=== PATIENT | female | born 1960 | race Two or more races ===

== ENCOUNTER 2018-02-27 02:05 | Inpatient (IN) | payer OTHER ==
[2018-02-27] VITALS (15 sets, daily range): BP systolic 96–148; BP diastolic 40–80
[~2018-02-27] VITALS: Ht 160 cm; Wt 105.7 kg
[~2018-02-27 02:05] MED LIST: BENADRYL25 MG ORAL; IBUPROFEN600 MG ORAL; ONDANSETRON ODT4 MG ORAL; PREDNISONE20 MG ORAL; PROMETHAZINE-C118 M1 ORAL; RANITIDINE HCL150 MG ORAL; TAMIFLU75 MG ORAL; VALIUM10 MG ORAL; VENLAFAXINE H37.5 MG ORAL; XANAX2 MG ORAL
[2018-02-27] MEDS ORDERED: Sodium Chloride 500ML 500 ML IV ONE (02:37)
--- NOTE | 2018-02-27 02:39 | Emergency Room Report ---
History of Present Illness General Chief Complaint: Abdominal Pain Source: Patient Present Illness HPI Patient presents with complaints of diffuse abdominal pain Pain started approximately 6 PM Denies any vomiting or diarrhea Pain however is 8 out of 10 diffuse Denies any chest pain or shortness of breath denies any dysuria frequency patient has not had any previous abdominal surgeries denies any flank pain denies any dysuria or trauma Allergies: Coded Allergies: No Known Allergies (Unverified , 09/04/13) Patient History Past Medical History: see triage record Pertinent Family History: none Last Menstrual Period: none Now: No Reviewed Nursing Documentation: PMH: Agreed; PSxH: Agreed Nursing Documentation-PMH Past Medical History: No Stated History Review of Systems All Other Systems: negative except mentioned in HPI Physical Exam Vital Signs Date Time Temp Pulse Resp B/P (MAP) Pulse Ox O2 Delivery O2 Flow Rate FiO2 02/27/18 02:09 100.7 99 15 157/89 93 Room Air 100.8 Sp02 EP Interpretation: reviewed, normal General Appearance: mild distress - Uncomfortable Head: normocephalic, atraumatic Eyes: bilateral eye PERRL, bilateral eye EOMI ENT: hearing grossly normal, normal pharynx, TMs + canals normal, uvula midline Neck: full range of motion, supple, no meningismus, no bony tend Respiratory: lungs clear, normal breath sounds, no rhonchi, no respiratory distress, no retraction, no accessory muscle use Cardiovascular #1: normal peripheral pulses, regular rate, rhythm, no edema, no gallop, no JVD, no murmur Gastrointestinal: normal bowel sounds, soft, no mass, no organomegaly, non- distended, no guarding, no hernia, no pulsatile mass, no rebound, tenderness - Diffusely Genitourinary: no CVA tenderness Musculoskeletal: normal inspection Neurologic: oriented x3, responsive, counseling center manager III-XII nml as tested, motor strength/ tone normal, sensory intact Psychiatric: mood/affect normal Skin: normal color, no rash, warm/dry, palpation normal Lymphatic: normal inspection, no adenopathy Procedures Critical Care Time Critical Care Time 40 minutes for multiple re-evaluations, diagnoses and findings with let threatening pathology not including any procedural time Medical Decision Making Diagnostic Impression: Primary Impression: Acute appendicitis ER Course With the history exam and presentation, multiple differentials considered, including but not limited to appendicitis, gastritis, cholecystitis, diverticulitis Patient blood work shows mildly elevated CBC CAT scan however does reveal evidence of acute appendicitis Patient provided further medications hydration and antibiotics And requires inpatient care and surgical intervention Labs Test 02/27/18 03:30 02/27/18 04:04 White Blood Count 13.2 K/UL (4.8-10.8) Red Blood Count 4.35 M/UL (4.20-5.40) Hemoglobin 14.0 G/DL (12.0-16.0) Hematocrit 41.2 % (37.0-47.0) Mean Corpuscular Volume 95 FL (80-99) Mean Corpuscular Hemoglobin 32.1 PG (27.0-31.0) Mean Corpuscular Hemoglobin Concent 33.9 G/DL (32.0-36.0) Red Cell Distribution Width 12.2 % (11.6-14.8) Platelet Count 137 K/UL (150-450) Mean Platelet Volume 9.7 FL (6.5-10.1) Neutrophils (%) (Auto) 80.0 % (45.0-75.0) Lymphocytes (%) (Auto) 12.6 % (20.0-45.0) Monocytes (%) (Auto) 6.8 % (1.0-10.0) Eosinophils (%) (Auto) 0.3 % (0.0-3.0) Basophils (%) (Auto) 0.5 % (0.0-2.0) Sodium Level 139 MMOL/L (136-145) Potassium Level 3.8 MMOL/L (3.5-5.1) Chloride Level 104 MMOL/L (98-107) Carbon Dioxide Level 28 MMOL/L (21-32) Anion Gap 8 mmol/L (5-15) Blood Urea Nitrogen 13 mg/dL (7-18) Creatinine 0.8 MG/DL (0.55-1.30) Estimat Glomerular Filtration Rate > 60 mL/min (>60) Glucose Level 131 MG/DL (74-106) Calcium Level 8.5 MG/DL (8.5-10.1) Total Bilirubin 0.5 MG/DL (0.2-1.0) Aspartate Amino Transf (AST/SGOT) 23 U/L (15-37) Alanine Aminotransferase (ALT/SGPT) 36 U/L (12-78) Alkaline Phosphatase 68 U/L (46-116) Total Protein 6.8 G/DL (6.4-8.2) Albumin 3.3 G/DL (3.4-5.0) Globulin 3.5 g/dL Albumin/Globulin Ratio 0.9 (1.0-2.7) Lipase 137 U/L (73-393) Urine Color Pale yellow Urine Appearance Clear Urine pH 7 (4.5-8.0) Urine Specific [place] 1.010 (1.005-1.035) Urine Protein Negative (NEGATIVE) Urine Glucose (UA) Negative (NEGATIVE) Urine Ketones Negative (NEGATIVE) Urine Occult Blood 2+ (NEGATIVE) Urine Nitrite Negative (NEGATIVE) Urine Bilirubin Negative (NEGATIVE) Urine Urobilinogen Normal MG/DL (0.0-1.0) Urine Leukocyte Esterase 3+ (NEGATIVE) Urine RBC 0-2 /HPF (0 - 2) Urine WBC 2-4 /HPF (0 - 2) Urine Squamous Epithelial Cells Occasional /LPF Urine Bacteria Occasional /HPF (NONE) CT/MRI/US Diagnostic Results CT/MRI/US Diagnostic Results : Impression CT abdomen pelvis: acute appendicitis Last Vital Signs Date Time Temp Pulse Resp B/P (MAP) Pulse Ox O2 Delivery O2 Flow Rate FiO2 02/27/18 02:09 100.7 99 15 157/89 93 Room Air 100.8 Status: improved Disposition: ADMITTED INPATIENT Condition: Serious JayceemarcyLorrie DO Feb 27, 2018 02:39
[2018-02-27] MEDS ORDERED: Morphine Sulfate 4mg/ml Inj IVP ONE (02:45)
[2018-02-27 03:57] LABS: BASOPHILS % (AUTO) 0.5 % (0.0-2.0); EOSINOPHILS % (AUTO) 0.3 % (0.0-3.0); HEMATOCRIT 41.2 % (37.0-47.0); LYMPHOCYTES % (AUTO) 12.6 % (20.0-45.0); MEAN CORPUSCULAR VOLUME 95 FL (80-99); MONOCYTES % (AUTO) 6.8 % (1.0-10.0); PLATELET COUNT 137 K/UL (150-450); RED BLOOD COUNT 4.35 M/UL (4.20-5.40); RED CELL DISTRIBUTION WIDTH 12.2 % (11.6-14.8); WHITE BLOOD COUNT 13.2 K/UL (4.8-10.8)
[2018-02-27 04:06] LABS: ANION GAP 8 mmol/L (5-15); BLOOD UREA NITROGEN 13 mg/dL (7-18); CALCIUM 8.5 MG/DL (8.5-10.1); CARBON DIOXIDE 28 MMOL/L (21-32); CHLORIDE 104 MMOL/L (98-107); CREATININE 0.8 MG/DL (0.55-1.30); POTASSIUM 3.8 MMOL/L (3.5-5.1); SODIUM 139 MMOL/L (136-145)
[2018-02-27 04:11] LABS: ALANINE AMINOTRANSFERASE 36 U/L (12-78); ALBUMIN 3.3 G/DL (3.4-5.0); ALBUMIN/GLOBULIN RATIO 0.9 (1.0-2.7); ALKALINE PHOSPHATASE 68 U/L (46-116); ASPARTATE AMINO TRANSFERASE 23 U/L (15-37); BILIRUBIN,TOTAL 0.5 MG/DL (0.2-1.0)
[2018-02-27 04:15] LABS: APPEARANCE,URINE CLEAR; BILIRUBIN, URINE NEGATIVE (NEGATIVE); COLOR,URINE PALE YELLOW; GLUCOSE, URINE (UA) NEGATIVE (NEGATIVE); KETONES,URINE NEGATIVE (NEGATIVE); LEUKOCYTE ESTERASE ,URINE 3+ (NEGATIVE); NITRITE,URINE NEGATIVE (NEGATIVE); PH,URINE 7 (4.5-8.0); PROTEIN,URINE NEGATIVE (NEGATIVE); UROBILINOGEN,URINE NORMAL MG/DL (0.0-1.0)
[2018-02-27] MEDS ORDERED: Piperacillin/Tazobactam 3.375 GM in NS 110 ML IVPB ONE (05:15)
[2018-02-27] MEDS ORDERED: VITAMIN E400 UNI6 PO (07:50)
[2018-02-27] MEDS ORDERED: MULTIVITAMINS1 EAC2 ORAL (07:50)
[2018-02-27] MEDS ORDERED: VITAMIN B122500 MCG PO (07:50)
[2018-02-27] MEDS ORDERED: VENLAFAXINE H37.5 MG ORAL (07:50)
[2018-02-27] MEDS ORDERED: XANAX0.25 MG ORAL (07:50)
[2018-02-27] MEDS ORDERED: Glycopyrrolate 0.2mg/ml 1ml Vial ONE (08:00)
[2018-02-27] MEDS ORDERED: NS Irrig 1000ml ONE (08:00)
[2018-02-27] MEDS ORDERED: LR 1000ml ONE (08:00)
[2018-02-27] MEDS ORDERED: Neostigmine 1mg/ml 10ml Inj ONE (08:00)
[2018-02-27] MEDS ORDERED: Sterile Water Irrig 1000ml IRRIG ONE (08:00)
[2018-02-27] MEDS ORDERED: Midazolam 2mg/2ml Inj ONE (08:00)
[2018-02-27] MEDS ORDERED: Succinylcholine 20mg/ml 10ml vial ONE (08:00)
[2018-02-27] MEDS ORDERED: Zemuron 50mg/5ml Inj IV ONE (08:00)
[2018-02-27] MEDS ORDERED: Propofol 200mg/20ml IV ONE (08:00)
[2018-02-27] MEDS ORDERED: Ketorolac 30mg Inj ONE (08:00)
[2018-02-27] MEDS ORDERED: fentaNYL 100 mcg/2 mL IV ONE (08:00)
--- NOTE | 2018-02-27 09:01 | Consultation ---
History of Present Illness General Date patient seen: Feb 27, 2018 Chief Complaint: Abdominal Pain Reason for Consultation: acute appendicitis Present Illness HPI 57 year old female presented to ED with complaints of acute onset abdominal pain. As per patient and family she was in her normal state of health until 6 pm last night when she began to experience acute lower/RLQ abdominal pain. Pain described as cramping pain which is 7/10 without radiation. nausea, no emesis, +flatus, no diarrhea. in ED had CT scan which demonstrated acute appendicitis. surgery called to evaluate. Allergies: Coded Allergies: No Known Allergies (Unverified , 09/04/13) Medication History Scheduled Cyanocobalamin (Vitamin B-12) (Vitamin B12), 2,500 MCG PO DAILY, (Reported) Multivitamins* (Multivitamins*), 1 TAB ORAL DAILY, (Reported) Prednisone* (Prednisone*), 20 MG ORAL BID Ranitidine Hcl* (Zantac*), 150 MG ORAL TWICE A DAY Venlafaxine Hcl* (Effexor*), 75 MG ORAL DAILY, (Reported) Vitamin E (Vitamin E), 800 UNIT PO DAILY, (Reported) Scheduled PRN Alprazolam* (Xanax*), 0.25 MG ORAL QHS PRN for insomnia, (Reported) Diphenhydramine Hcl* (Benadryl*), 25 MG ORAL Q6H PRN for Itching Ibuprofen* (Motrin*), 600 MG ORAL Q8H PRN for For Pain Patient History History Provided By: Patient, Medical Record, PMD Healthcare decision maker Resuscitation status Full Code Advanced Directive on File Past Medical/Surgical History Past Medical/Surgical History: (1) Vertigo (2) Anxiety (3) Influenza (4) Influenza (5) Allergic reaction (6) Toe sprain (7) Acute appendicitis Review of Systems All Other Systems: negative except mentioned in HPI Physical Exam General Appearance: no apparent distress, alert Lines, tubes and drains: peripheral HEENT: normocephalic, anicteric, mucous membranes moist, PERRL Neck: normal alignment Respiratory/Chest: chest wall non-tender, lungs clear, normal breath sounds, no respiratory distress Cardiovascular/Chest: normal peripheral pulses, normal rate Abdomen: normal bowel sounds, soft, no organomegaly, no mass, guarding, rebound , tender, other - soft, tender in RLQ with rebound and guarding, obese Extremities: normal range of motion, non-tender, normal inspection Skin Exam: normal pigmentation Neurologic: alert, oriented x 3 Last 24 Hour Vital Signs Date Time Temp Pulse Resp B/P (MAP) Pulse Ox O2 Delivery O2 Flow Rate FiO2 02/27/18 06:45 99.4 74 20 130/78 93 99.4 02/27/18 06:40 98.2 77 15 121/64 99 Room Air 98.2 02/27/18 05:54 98.2 77 15 121/64 99 Room Air 98.2 02/27/18 04:50 100.0 02/27/18 04:30 87 16 118/66 100 Room Air 02/27/18 04:12 100.5 02/27/18 02:30 100.5 88 16 148/79 100.5 02/27/18 02:09 100.7 99 15 157/89 93 Room Air 100.8 Laboratory Tests Test 02/27/18 03:30 02/27/18 04:04 White Blood Count 13.2 K/UL (4.8-10.8) H Red Blood Count 4.35 M/UL (4.20-5.40) Hemoglobin 14.0 G/DL (12.0-16.0) Hematocrit 41.2 % (37.0-47.0) Mean Corpuscular Volume 95 FL (80-99) Mean Corpuscular Hemoglobin 32.1 PG (27.0-31.0) H Mean Corpuscular Hemoglobin Concent 33.9 G/DL (32.0-36.0) Red Cell Distribution Width 12.2 % (11.6-14.8) Platelet Count 137 K/UL (150-450) L Mean Platelet Volume 9.7 FL (6.5-10.1) Neutrophils (%) (Auto) 80.0 % (45.0-75.0) H Lymphocytes (%) (Auto) 12.6 % (20.0-45.0) L Monocytes (%) (Auto) 6.8 % (1.0-10.0) Eosinophils (%) (Auto) 0.3 % (0.0-3.0) Basophils (%) (Auto) 0.5 % (0.0-2.0) Sodium Level 139 MMOL/L (136-145) Potassium Level 3.8 MMOL/L (3.5-5.1) Chloride Level 104 MMOL/L (98-107) Carbon Dioxide Level 28 MMOL/L (21-32) Anion Gap 8 mmol/L (5-15) Blood Urea Nitrogen 13 mg/dL (7-18) Creatinine 0.8 MG/DL (0.55-1.30) Estimat Glomerular Filtration Rate > 60 mL/min (>60) Glucose Level 131 MG/DL (74-106) H Calcium Level 8.5 MG/DL (8.5-10.1) Total Bilirubin 0.5 MG/DL (0.2-1.0) Aspartate Amino Transf (AST/SGOT) 23 U/L (15-37) Alanine Aminotransferase (ALT/SGPT) 36 U/L (12-78) Alkaline Phosphatase 68 U/L (46-116) Total Protein 6.8 G/DL (6.4-8.2) Albumin 3.3 G/DL (3.4-5.0) L Globulin 3.5 g/dL Albumin/Globulin Ratio 0.9 (1.0-2.7) L Lipase 137 U/L (73-393) Urine Color Pale yellow Urine Appearance Clear Urine pH 7 (4.5-8.0) Urine Specific [place] 1.010 (1.005-1.035) Urine Protein Negative (NEGATIVE) Urine Glucose (UA) Negative (NEGATIVE) Urine Ketones Negative (NEGATIVE) Urine Occult Blood 2+ (NEGATIVE) H Urine Nitrite Negative (NEGATIVE) Urine Bilirubin Negative (NEGATIVE) Urine Urobilinogen Normal MG/DL (0.0-1.0) Urine Leukocyte Esterase 3+ (NEGATIVE) H Urine RBC 0-2 /HPF (0 - 2) Urine WBC 2-4 /HPF (0 - 2) Urine Squamous Epithelial Cells Occasional /LPF Urine Bacteria Occasional /HPF (NONE) Height (Feet): 5 Height (Inches): 3.00 Weight (Pounds): 196 Assessment/Plan Problem List: (1) Acute appendicitis Assessment & Plan: 57F acute appy. Afebrile, HD stable, leukocytosis, exam with RLQ tenderness, CT as above. -OR for lap vs open appy -NPO -IV fluids -IV abx -consent ICD Codes: K35.80 - Unspecified acute appendicitis SNOMED: [id number] Qualifiers: Qualified Codes: K35.3 - Acute appendicitis with localized peritonitis Status: stable Lambert Duque Feb 27, 2018 09:01
--- NOTE | 2018-02-27 09:02 | Pre-Procedure Note/Attestation ---
Pre-Procedure Note/Attestation Complete Prior to Procedure Planned Procedure: not applicable Procedure Narrative: laparoscopic appendectomy; possible open Indications for Procedure Pre-Operative Diagnosis: acute appendicitis Attestation I attest that I discussed the nature of the procedure; its benefits; risks and complications; and alternatives (and the risks and benefits of such alternatives ), prior to the procedure, with the patient (or the patient's legal parts sales representative). I attest that, if there was a reasonable possibility of needing a blood transfusion, the patient (or the patient's legal parts sales representative) was given the [facility] standardized written summary, pursuant to the [place] Blood Safety Act ([place] Health and Safety Code # 1645, as amended). I attest that I re-evaluated the patient just prior to the surgery and that there has been no change in the patient's H&P, except as documented below: Lambert Duque Feb 27, 2018 09:02
[2018-02-27] MEDS ORDERED: Lidocaine 1% 10mg/ml/Epi 0.005mg/ml 30ml vial INJ ONE (09:36)
--- NOTE | 2018-02-27 09:48 | Diagnostic Imaging Report ---
Indication: Abdominal pain Technique: Continuous helical transaxial imaging of the abdomen and pelvis was obtained from the lung bases to the pubic symphysis. No intravenous contrast was administered. Coronal 2-D reformats were also obtained. Automatic Exposure Control was utilized. Total Dose length Product (DLP): 1784.[address] Dose Index Volume (CTDIvol): 32.87 mGy Comparison: none Findings: There is mild subsegmental posterior basal atelectasis. There is moderate low attenuation of the liver consistent with fatty infiltration. Gallbladder is unremarkable. Proceeding to the pelvis, the appendix is seen and appears somewhat prominent measuring between 8 to 9 mm in diameter. The wall of the appendix is ill-defined and there is a slight soft tissue attenuation noted surrounding the appendix. Findings concerning for early acute appendicitis. Please correlate clinically. No evidence of abscess or free fluid. Urinary bladder is unremarkable. There is no hydronephrosis. Uterus noted. Degenerative facet arthropathy noted in the lower lumbar spine characterized by sclerosis and hypertrophy. Mild arterial calcification noted. IMPRESSION: Acute appendicitis suspected. Fatty liver. Other incidental findings as above. [facility] has communicated the preliminary results to the Emergency Department. Their findings are largely concordant with this report. Critical value communication The CT scanner at [facility] is accredited by the [employer] and the scans are performed using dose optimization techniques as appropriate to a performed exam including Automatic Exposure control.
[2018-02-27] MEDS ORDERED: NS Irrig 1000ml IRRIG ONE (11:00)
[2018-02-27] MEDS: Piperacillin/Tazobactam 3.375 GM in D5W 110 ML IVPB SCH ×2 (11:00→19:03)
[2018-02-27] MEDS ORDERED: LR 1000ml 1,000 ML IVLG SCH (11:20)
--- NOTE | 2018-02-27 11:20 | Anethesia Preoperative Eval ---
Anesthesia Pre-op PMH/ROS General Date of Evaluation: Feb 27, 2018 Time of Evaluation: 10:28 Anesthesiologist: aMrion ASA Score: ASA 3 Mallampati Score Class I : Soft palate, uvula, fauces, pillars visible Class II: Soft palate, uvula, fauces visible Class III: Soft palate, base of uvula visible Class IV: Only hard plate visible Mallampati Classification: Class III Surgeon: Zee Diagnosis: Acute appedicitis Surgical Procedure: Laparoscopic appedectomy Anesthesia History: none Family History: no anesthesia problems Allergies: Coded Allergies: No Known Allergies (Unverified , 09/04/13) Medications: see eMAR Past Medical History Cardiovascular: Denies: HTN, CAD, ME, valve dz, arrhythmia, other Pulmonary: Reports: JUNE; Denies: asthma, COPD, other Gastrointestinal/Genitourinary: Reports: GERD; Denies: CRI, ESRD, other Neurologic/Psychiatric: Reports: depression/anxiety; Denies: dementia, CVA, TIA, other Endocrine: Reports: DM - borderline; Denies: hypothyroidism, steroids, other Hematology/Immune: Denies: anemia, DVT, bleeding disorder, other Musculoskeletal/Integumentary: Denies: OA, RA, DJD, DDD, edema, other Other: obesity - morbid obesity PMH Narrative: Acutely ill abdominal pain fewer PSxH Narrative: Hand tendon repair Anesthesia Pre-op Phys. Exam Physician Exam Last Vital Signs Date Time Temp Pulse Resp B/P (MAP) Pulse Ox O2 Delivery O2 Flow Rate FiO2 02/27/18 08:00 98.6 85 17 142/80 99 Room Air 98.6 Constitutional: NAD Neurologic: CN 2-12 intact Cardiovascular: RRR Respiratory: CTA Gastrointestinal: other - tender Airway Exam Mallampati Score: Class III MO: limited Neck: Short ROM: limited Teeth: missing Dentures: no upper, no lower Anesthesia Pre-op A/P Labs Hematology Test 02/27/18 03:30 White Blood Count 13.2 K/UL (4.8-10.8) H Red Blood Count 4.35 M/UL (4.20-5.40) Hemoglobin 14.0 G/DL (12.0-16.0) Hematocrit 41.2 % (37.0-47.0) Mean Corpuscular Volume 95 FL (80-99) Mean Corpuscular Hemoglobin 32.1 PG (27.0-31.0) H Mean Corpuscular Hemoglobin Concent 33.9 G/DL (32.0-36.0) Red Cell Distribution Width 12.2 % (11.6-14.8) Platelet Count 137 K/UL (150-450) L Mean Platelet Volume 9.7 FL (6.5-10.1) Neutrophils (%) (Auto) 80.0 % (45.0-75.0) H Lymphocytes (%) (Auto) 12.6 % (20.0-45.0) L Monocytes (%) (Auto) 6.8 % (1.0-10.0) Eosinophils (%) (Auto) 0.3 % (0.0-3.0) Basophils (%) (Auto) 0.5 % (0.0-2.0) Coagulation Test 02/27/18 09:20 Prothrombin Time 10.9 SEC (9.30-11.50) Prothromb Time International Ratio 1.0 (0.9-1.1) Activated Partial Thromboplast Time 28 SEC (23-33) Chemistry Test 02/27/18 03:30 Sodium Level 139 MMOL/L (136-145) Potassium Level 3.8 MMOL/L (3.5-5.1) Chloride Level 104 MMOL/L (98-107) Carbon Dioxide Level 28 MMOL/L (21-32) Anion Gap 8 mmol/L (5-15) Blood Urea Nitrogen 13 mg/dL (7-18) Creatinine 0.8 MG/DL (0.55-1.30) Estimat Glomerular Filtration Rate > 60 mL/min (>60) Glucose Level 131 MG/DL (74-106) H Calcium Level 8.5 MG/DL (8.5-10.1) Total Bilirubin 0.5 MG/DL (0.2-1.0) Aspartate Amino Transf (AST/SGOT) 23 U/L (15-37) Alanine Aminotransferase (ALT/SGPT) 36 U/L (12-78) Alkaline Phosphatase 68 U/L (46-116) Total Protein 6.8 G/DL (6.4-8.2) Albumin 3.3 G/DL (3.4-5.0) L Globulin 3.5 g/dL Albumin/Globulin Ratio 0.9 (1.0-2.7) L Lipase 137 U/L (73-393) Studies Pre-op Studies: EKG - NSR Risk Assessment & Plan Assessment: ASA 3 Plan: GA with ETT Status Change Before Surgery: No Pre-Antibiotics Drug: Zosin 3,375 Given Within 1 Hr of Incision: Yes Time Given: 11:20 REFUGIO TOMAS M.D. Feb 27, 2018 11:20
[2018-02-27] MEDS ORDERED: DiphenhydrAMINE 50mg/ml Inj IVP PRN (11:30)
[2018-02-27] MEDS ORDERED: Meperidine 50mg/ml Inj(FOR RIGORS ONLY) IV PRN (11:30)
[2018-02-27] MEDS ORDERED: Ketorolac 30mg Inj IV PRN (11:30)
[2018-02-27] MEDS ORDERED: Hydromorphone 0.5mg/0.5ml inj IVP PRN (11:30)
[2018-02-27] MEDS ORDERED: Midazolam 2mg/2ml Inj IVP PRN (11:30)
--- NOTE | 2018-02-27 12:07 | Brief Operative Note ---
Immediate Post Operative Note Operative Note Pre-op Diagnosis: acute appendicitis Procedure: laparoscopic appendectomy Post-op Diagnosis: same as pre-op Surgeon: kwame Anesthesiologist: celia Anesthesia: general, local Specimen: yes - appendix Complications: none Condition: stable Fluids: see records Estimated Blood Loss: minimal Drains: none Implant(s) used?: No Lambert Duque Feb 27, 2018 12:07
--- NOTE | 2018-02-27 12:08 | Immediate Post-Op Evaluation ---
Immediate Post-Op Evalulation Immediate Post-Op Evalulation Procedure: Laparoscopic appendectomy Date of Evaluation: Feb 27, 2018 Time of Evaluation: 12:07 IV Fluids: 800 Blood Products: none Estimated Blood Loss: 50 Urinary Output: none Blood Pressure Systolic: 112 Blood Pressure Diastolic: 56 Pulse Rate: 86 Respiratory Rate: 22 O2 Sat by Pulse Oximetry: 97 Temperature (Fahrenheit): 97.8 Pain Score (1-10): 2 Nausea: No Vomiting: No Complications none Patient Status: awake, patent, extubated Hydration Status: adequate REFUGIO TOMAS M.D. Feb 27, 2018 12:08
[2018-02-27] MEDS ORDERED: Morphine Sulfate 4mg/ml Inj IVP PRN ×2 (12:15→14:00)
[2018-02-27] MEDS ORDERED: HYDROcodone/Acetamin 10/325 tab ORAL PRN (12:15)
[2018-02-27] MEDS ORDERED: Morphine Sulfate 2mg/ml Inj IVP PRN (12:15)
[2018-02-27] MEDS ORDERED: Norco 5mg/325mg tab ORAL PRN (12:15)
--- NOTE | 2018-02-27 13:30 | Operative Note - Dictated ---
DATE OF OPERATION: 02/27/2018 PREOPERATIVE DIAGNOSIS: Acute appendicitis. POSTOPERATIVE DIAGNOSIS: Acute appendicitis. OPERATION PERFORMED: Laparoscopic appendectomy. ATTENDING SURGEON: Lambert Duque M.D. HANDCREW FOREMAN: None. ANESTHESIOLOGIST: Drew Schultz M.D. 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 ESTIMATED BLOOD LOSS: Minimal. IV FLUIDS: Please see anesthesia records. COMPLICATIONS: None. SPECIMENS: Appendix sent to pathology for review. WOUND CLASSIFICATION: Class II. INTRAVENOUS ANTIBIOTICS: The patient was on scheduled Zosyn prior to entering the operating room. COUNTS: Sponge and needle count correct x2. DRAINS: None. INDICATIONS FOR PROCEDURE: This is a 57-year-old female who presented to the emergency department at [facility] complaining of worsening right lower quadrant abdominal pain for one day. In the emergency department, the patient was noted to have leukocytosis and CT scan consistent with acute uncomplicated appendicitis. Surgery was indicated and recommended. Risks, benefits, and alternatives were discussed with the patient and family in detail at bedside and consent was obtained. OPERATIVE NOTE: The patient was taken to the operating room and placed on the operating table in supine position with bilateral arms out. All bony prominences were well padded. No Heard catheter was inserted given the patient had voided prior to entering the operating room. The patient was on scheduled IV Zosyn prior to entering the operating room. Preoperative time-out was taken identifying the patient, procedure, operative staff, and surgical staff. General anesthesia was induced and the patient was intubated. The abdomen was prepped and draped in standard surgical fashion. We began by making an infraumbilical incision using a fresh #11 scalpel. Incision was carried down to the fascia, which was elevated and incised. Entry into the abdomen was obtained using the open Reji technique without complication. A 12 mm Reji trocar was inserted and abdomen insufflated to 12 to 15 mmHg. The patient tolerated the insufflation well. The laparoscope was then inserted and the abdomen inspected. No complications or abnormalities noted. Secondary trocars were placed in under direct visualization beginning with a 12 mm left lower quadrant port and a 5 mm suprapubic port. Following this, laparoscopic graspers were used to identify the taeniae down to the base of the cecum identifying the appendix. The appendix was identified and noted to be inflamed but without perforation. The appendix was grasped and retracted to identify the base of the appendix. A window was made at the base of the appendix using a laparoscopic Jolene. A laparoscopic linear stapler was then used to divide the base of the appendix without complication. The mesoappendix was then identified and divided in a similar fashion using a laparoscopic linear stapler. Following completion of this, there was some bleeding noted from the appendiceal artery through the mesoappendix staple line and this was controlled using laparoscopic clips. Once this was completed, hemostasis was noted. Both staple lines were identified and satisfactory. Minimal irrigation and suction in the right lower quadrant was performed. At this time, the appendix was placed in an endoscopic retrieval bag and removed from the abdomen using the umbilical port site. At this time, we began the conclusion of our procedure. The secondary trocars were removed under direct visualization. The umbilical trocar was then removed and the abdomen allowed to desufflate. The umbilical port site fascia was closed using a [id number] #0 Vicryl suture. The remaining skin incisions were closed using 4-0 Monocryl subcuticular sutures. Steri-Strips and dressings were applied. The patient tolerated the procedure well, was extubated, and taken to postanesthetic care unit in stable condition. Madai Garza JOB#: [id number] CC:
--- NOTE | 2018-02-27 14:15 | History and Physical ---
History of Present Illness General Date patient seen: Feb 27, 2018 Reason for Hospitalization: Abdominal Pain Present Illness HPI 57 year old female with PMHx of depression and kidney stones presented to ER with complaints of diffuse abdominal pain. Pt was diagnosed to have appendicitis, was seen by surgeon who performed the appendectomy already. Pt is admitted to [facility] floor for post-op care. / Allergies: Coded Allergies: No Known Allergies (Unverified , 09/04/13) Medication History Scheduled Cyanocobalamin (Vitamin B-12) (Vitamin B12), 2,500 MCG PO DAILY, (Reported) Multivitamins* (Multivitamins*), 1 TAB ORAL DAILY, (Reported) Prednisone* (Prednisone*), 20 MG ORAL BID Ranitidine Hcl* (Zantac*), 150 MG ORAL TWICE A DAY Venlafaxine Hcl* (Effexor*), 75 MG ORAL DAILY, (Reported) Vitamin E (Vitamin E), 800 UNIT PO DAILY, (Reported) Scheduled PRN Alprazolam* (Xanax*), 0.25 MG ORAL QHS PRN for insomnia, (Reported) Diphenhydramine Hcl* (Benadryl*), 25 MG ORAL Q6H PRN for Itching Ibuprofen* (Motrin*), 600 MG ORAL Q8H PRN for For Pain Patient History Healthcare decision maker Resuscitation status Full Code Advanced Directive on File Review of Systems All Other Systems: negative except mentioned in HPI Physical Exam General Appearance: WD/WN Lines, tubes and drains: peripheral, central line HEENT: atraumatic, anicteric Neck: non-tender, normal alignment, limited range of motion Respiratory/Chest: chest wall non-tender, no accessory muscle use Breasts: no masses Cardiovascular/Chest: normal rate Abdomen: normal bowel sounds, guarding Genitourinary/Rectal: normal genital exam, normal rectal exam, heme negative stool Last 24 Hour Vital Signs Date Time Temp Pulse Resp B/P (MAP) Pulse Ox O2 Delivery O2 Flow Rate FiO2 02/27/18 13:15 99.2 69 18 105/49 96 Nasal Cannula 3.0 99.2 02/27/18 13:00 71 17 96/42 96 Nasal Cannula 3.0 02/27/18 12:56 99.0 02/27/18 12:45 76 18 98/40 97 Nasal Cannula 3.0 02/27/18 12:30 70 18 98/40 95 Nasal Cannula 3.0 02/27/18 12:26 99.0 02/27/18 12:20 79 18 103/48 97 Nasal Cannula 3.0 02/27/18 12:10 76 20 112/51 96 Simple Mask 6.0 02/27/18 12:08 208.0 86 22 97 02/27/18 12:00 99.0 82 22 109/46 97 Simple Mask 6.0 99.0 02/27/18 11:56 99.0 82 22 109/46 97 Simple Mask 6.0 99.0 02/27/18 08:00 98.6 85 17 142/80 99 Room Air 98.6 02/27/18 06:45 99.4 74 20 130/78 93 99.4 02/27/18 06:40 98.2 77 15 121/64 99 Room Air 98.2 02/27/18 05:54 98.2 77 15 121/64 99 Room Air 98.2 02/27/18 04:50 100.0 02/27/18 04:30 87 16 118/66 100 Room Air 02/27/18 04:12 100.5 02/27/18 02:30 100.5 88 16 148/79 100.5 02/27/18 02:09 100.7 99 15 157/89 93 Room Air 100.8 Intake and Output 02/26/18 02/27/18 19:00 07:00 # Voids 2 Laboratory Tests Test 02/27/18 03:30 02/27/18 04:04 02/27/18 09:20 White Blood Count 13.2 K/UL (4.8-10.8) H Red Blood Count 4.35 M/UL (4.20-5.40) Hemoglobin 14.0 G/DL (12.0-16.0) Hematocrit 41.2 % (37.0-47.0) Mean Corpuscular Volume 95 FL (80-99) Mean Corpuscular Hemoglobin 32.1 PG (27.0-31.0) H Mean Corpuscular Hemoglobin Concent 33.9 G/DL (32.0-36.0) Red Cell Distribution Width 12.2 % (11.6-14.8) Platelet Count 137 K/UL (150-450) L Mean Platelet Volume 9.7 FL (6.5-10.1) Neutrophils (%) (Auto) 80.0 % (45.0-75.0) H Lymphocytes (%) (Auto) 12.6 % (20.0-45.0) L Monocytes (%) (Auto) 6.8 % (1.0-10.0) Eosinophils (%) (Auto) 0.3 % (0.0-3.0) Basophils (%) (Auto) 0.5 % (0.0-2.0) Sodium Level 139 MMOL/L (136-145) Potassium Level 3.8 MMOL/L (3.5-5.1) Chloride Level 104 MMOL/L (98-107) Carbon Dioxide Level 28 MMOL/L (21-32) Anion Gap 8 mmol/L (5-15) Blood Urea Nitrogen 13 mg/dL (7-18) Creatinine 0.8 MG/DL (0.55-1.30) Estimat Glomerular Filtration Rate > 60 mL/min (>60) Glucose Level 131 MG/DL (74-106) H Calcium Level 8.5 MG/DL (8.5-10.1) Total Bilirubin 0.5 MG/DL (0.2-1.0) Aspartate Amino Transf (AST/SGOT) 23 U/L (15-37) Alanine Aminotransferase (ALT/SGPT) 36 U/L (12-78) Alkaline Phosphatase 68 U/L (46-116) Total Protein 6.8 G/DL (6.4-8.2) Albumin 3.3 G/DL (3.4-5.0) L Globulin 3.5 g/dL Albumin/Globulin Ratio 0.9 (1.0-2.7) L Lipase 137 U/L (73-393) Urine Color Pale yellow Urine Appearance Clear Urine pH 7 (4.5-8.0) Urine Specific [place] 1.010 (1.005-1.035) Urine Protein Negative (NEGATIVE) Urine Glucose (UA) Negative (NEGATIVE) Urine Ketones Negative (NEGATIVE) Urine Occult Blood 2+ (NEGATIVE) H Urine Nitrite Negative (NEGATIVE) Urine Bilirubin Negative (NEGATIVE) Urine Urobilinogen Normal MG/DL (0.0-1.0) Urine Leukocyte Esterase 3+ (NEGATIVE) H Urine RBC 0-2 /HPF (0 - 2) Urine WBC 2-4 /HPF (0 - 2) Urine Squamous Epithelial Cells Occasional /LPF Urine Bacteria Occasional /HPF (NONE) Prothrombin Time 10.9 SEC (9.30-11.50) Prothromb Time International Ratio 1.0 (0.9-1.1) Activated Partial Thromboplast Time 28 SEC (23-33) Height (Feet): 5 Height (Inches): 3.00 Weight (Pounds): 233 Medications Current Medications Medications (Trade) Dose Ordered Sig/Layla Route PRN Reason Start Time Stop Time Status Last Admin Dose Admin Acetaminophen/ Hydrocodone Bitart ([place] 10/325) 1 tab Q4H PRN ORAL Severe Pain (Pain Scale 7-10) 02/27/18 12:15 03/06/18 12:14 Acetaminophen/ Hydrocodone Bitart ([place] 5/325) 1 tab Q4H PRN ORAL Moderate Pain (Pain Scale 4-6) 02/27/18 12:15 03/06/18 12:14 Diphenhydramine HCl (Benadryl) 25 mg Q15M PRN IVP Itching 02/27/18 11:30 02/27/18 18:00 Hydromorphone HCl (Dilaudid) 0.5 mg Q15M PRN IVP Severe Pain (Pain Scale 7-10) 02/27/18 11:30 02/27/18 18:00 Lactated Ringer's 1,000 ml @ 10 mls/hr Q24H IVLG 02/27/18 11:20 02/27/18 18:00 Meperidine HCl (Demerol) 25 mg Q15M PRN IV chills 02/27/18 11:30 02/27/18 18:00 02/27/18 12:26 Midazolam HCl (Versed 2mg/2ml vial) 1 mg Q15M PRN IVP For Anxiety 02/27/18 11:30 02/27/18 18:00 Morphine Sulfate (Morphine Sulfate) 1 mg Q4H PRN IVP pain scale 1-3 02/27/18 12:15 03/06/18 12:14 Morphine Sulfate (Morphine Sulfate) 2 mg Q4H PRN IVP pain scale 4-6 02/27/18 12:15 03/06/18 12:14 Morphine Sulfate (Morphine Sulfate) 4 mg Q4H PRN IVP pain score 7-10 02/27/18 14:00 03/06/18 13:59 Ondansetron HCl (Zofran) 4 mg Q1H PRN IVP Nausea & Vomiting 02/27/18 11:30 02/27/18 18:00 Ondansetron HCl (Zofran) 4 mg Q6H PRN IVP Nausea & Vomiting 02/27/18 12:15 03/29/18 12:14 Piperacillin Sod/ Tazobactam Sod 3.375 gm/Dextrose 110 ml @ 27.5 mls/hr Q8H IVPB 02/27/18 11:00 03/06/18 10:59 Sodium Chloride 1,000 ml @ 100 mls/hr Q10H IVLG 02/27/18 09:30 03/29/18 09:29 02/27/18 10:04 Assessment/Plan Problem List: (1) Acute appendicitis ICD Codes: K35.80 - Unspecified acute appendicitis SNOMED: [id number] Qualifiers: Qualified Codes: K35.3 - Acute appendicitis with localized peritonitis Assessment/Plan npo iv fluids symptomatic treatment Jem Ibarra MD Feb 27, 2018 14:15
[2018-02-28] VITALS: BP 130/73
[2018-02-28] MEDS: Piperacillin/Tazobactam 3.375 GM in D5W 110 ML IVPB SCH ×2 (02:28→13:08)
[2018-02-28 04:00] VITALS: BP 116/64
[2018-02-28 07:09] LABS: BASOPHILS % (AUTO) 0.5 % (0.0-2.0); HEMOGLOBIN 12.5 G/DL (12.0-16.0); LYMPHOCYTES % (AUTO) 20.7 % (20.0-45.0); MEAN CORPUSCULAR VOLUME 96 FL (80-99); MONOCYTES % (AUTO) 8.8 % (1.0-10.0); NEUTROPHILS % (AUTO) 69.1 % (45.0-75.0); PLATELET COUNT 107 K/UL (150-450); RED BLOOD COUNT 3.97 M/UL (4.20-5.40); RED CELL DISTRIBUTION WIDTH 12.4 % (11.6-14.8); WHITE BLOOD COUNT 8.2 K/UL (4.8-10.8)
[2018-02-28 07:46] LABS: ANION GAP 7 mmol/L (5-15); BLOOD UREA NITROGEN 7 mg/dL (7-18); CALCIUM 7.9 MG/DL (8.5-10.1); CARBON DIOXIDE 28 MMOL/L (21-32); CHLORIDE 107 MMOL/L (98-107); CREATININE 0.8 MG/DL (0.55-1.30); POTASSIUM 3.6 MMOL/L (3.5-5.1); SODIUM 142 MMOL/L (136-145)
[2018-02-28 12:00] VITALS: BP 121/76
--- NOTE | 2018-02-28 13:03 | General Progress Note ---
Progress Note Progress Note Surgery: doing well. no acute events. comfortable. no n/v/f/c. pain minimal and improved. ambulatory. tolerating diet wounds c/d/i. exam benign and improved. okay to d/c from surgical standpoint follow up with me next wed instructions given to patient and daughter at bedside. Lambert Duque Feb 28, 2018 13:03
--- NOTE | 2018-02-28 14:47 | Pulmonology Progress Note ---
Assessment/Plan Problems: (1) Acute appendicitis Assessment/Plan doing well dc home Subjective ROS Limited/Unobtainable: No Constitutional: Reports: no symptoms HEENT: Repors: no symptoms Respiratory: Reports: no symptoms Allergies: Coded Allergies: No Known Allergies (Unverified , 09/04/13) Objective Last 24 Hour Vital Signs Date Time Temp Pulse Resp B/P (MAP) Pulse Ox O2 Delivery O2 Flow Rate FiO2 02/28/18 12:00 98.9 83 20 121/76 93 Room Air 98.9 02/28/18 04:00 98.6 74 20 116/64 97 98.6 02/28/18 00:00 98.2 76 20 130/73 97 98.2 02/27/18 20:00 99.0 80 20 111/65 96 99.0 02/27/18 19:31 99.7 02/27/18 18:32 99.7 02/27/18 16:00 99.7 78 18 119/66 97 Nasal Cannula 3.0 99.7 Intake and Output 02/27/18 02/28/18 19:00 07:00 Intake Total 880 ml 220.0 ml Balance 880 ml 220.0 ml Intake Oral 580 ml IV Total 300 ml 220.0 ml # Voids 3 3 Objective General Appearance: obese HEENT: normocephalic Respiratory/Chest: chest wall non-tender, lungs clear Breasts: no masses Cardiovascular: normal rate Abdomen: normal bowel sounds, soft, non tender Extremities: no cyanosis Skin: no ulcers Neurologic/Psychiatric: no motor/sensory deficits Laboratory Tests 02/28/18 06:05: White Blood Count 8.2, Red Blood Count 3.97L, Hemoglobin 12.5, Hematocrit 38.0, Mean Corpuscular Volume 96, Mean Corpuscular Hemoglobin 31.4H, Mean Corpuscular Hemoglobin Concent 32.9, Red Cell Distribution Width 12.4, Platelet Count 107L, Mean Platelet Volume 8.4, Neutrophils (%) (Auto) 69.1, Lymphocytes (%) (Auto) 20.7, Monocytes (%) (Auto) 8.8, Eosinophils (%) (Auto) 1.0, Basophils (%) (Auto ) 0.5, Sodium Level 142, Potassium Level 3.6, Chloride Level 107, Carbon Dioxide Level 28, Anion Gap 7, Blood Urea Nitrogen 7, Creatinine 0.8, Estimat Glomerular Filtration Rate > 60, Glucose Level 113H, Calcium Level 7.9L Current Medications Medications (Trade) Dose Ordered Sig/Layla Route PRN Reason Start Time Stop Time Status Last Admin Dose Admin Acetaminophen (Tylenol) 650 mg Q6H PRN ORAL Mild Pain/Temp > 100.5 02/27/18 17:45 03/29/18 17:44 02/27/18 18:32 Acetaminophen/ Hydrocodone Bitart ([place] 10/325) 1 tab Q4H PRN ORAL Severe Pain (Pain Scale 7-10) 02/27/18 12:15 03/06/18 12:14 Acetaminophen/ Hydrocodone Bitart ([place] 5/325) 1 tab Q4H PRN ORAL Moderate Pain (Pain Scale 4-6) 02/27/18 12:15 03/06/18 12:14 Cetylpyridinium Chloride (Cepacol) 1 lozg Q2H PRN DOC SORE THROAT 02/27/18 17:45 03/29/18 17:44 02/27/18 18:31 Morphine Sulfate (Morphine Sulfate) 1 mg Q4H PRN IVP pain scale 1-3 02/27/18 12:15 03/06/18 12:14 Morphine Sulfate (Morphine Sulfate) 2 mg Q4H PRN IVP pain scale 4-6 02/27/18 12:15 03/06/18 12:14 Morphine Sulfate (Morphine Sulfate) 4 mg Q4H PRN IVP pain score 7-10 02/27/18 14:00 03/06/18 13:59 Ondansetron HCl (Zofran) 4 mg Q6H PRN IVP Nausea & Vomiting 02/27/18 12:15 03/29/18 12:14 Piperacillin Sod/ Tazobactam Sod 3.375 gm/Dextrose 110 ml @ 27.5 mls/hr Q8H IVPB 02/27/18 11:00 03/06/18 10:59 02/28/18 13:08 Jem Ibarra MD Feb 28, 2018 14:47
[2018-02-28] MEDS ORDERED: Tubing IV Secondary IV ONE (18:24)
--- NOTE | 2018-03-01 09:25 | Discharge Summary ---
Discharge Summary Discharge Summary Discharge Summary DATE OF ADMISSION: 02/27/2018 DATE OF DISCHARGE: 02/28/2018 REASON FOR ADMISSION: 57 years old female presented to emergency department complaining of diffuse abdominal pain. She described pain as 8 out of 10, diffused and nonradiating. She denied vomiting or diarrhea. She denied chest pain or shortness of breath. No reported urinary frequency or dysuria, no flank pain. She denied previous abdominal surgeries. Upon evaluation patient exhibited low-grade fever - 100.7 and leukocytosis- 13.2. CT of the abdomen and pelvis revealed acute appendicitis. Fatty liver Patient started on the IV fluids and empiric antibiotics, analgesics provided. Surgical consult requested urgently for further evaluation and management . [facility]SE: Surgeon seen the patient in emergency department and explained the need for the procedure. Risk-benefit and alternatives were discussed with the patient's family in detail at the bedside. surgery was indicated and recommend. Consent was obtained. Patient was kept nothing by mouth . Patient was scheduled for laparoscopic versus open appendectomy. Prophylactic antibiotic given. Patient subsequently undergone laparoscopic appendectomy . Course of recovery was uneventful. Patient was on IV fluids . Patient was started on clear liquid diet. Patient was able to ambulate, voided freely. tolerated liquid diet and was gradually advanced to soft diet. Pain management was addressed. Pain was controlled with oral analgesics. Small laparoscopic incisions clean dry and intact. Abdominal exam benign. Surgeon cleared patient for discharge patient was stable for discharge home with outpatient follow-up with his surgeon as advised. Due to rapid and unexpected improvement in patient's condition, the patient was discharged in one day. FINAL DIAGNOSES: Acute appendicitis. Status post laparoscopic appendectomy. DISCHARGE MEDICATIONS: See Medication Reconciliation list. DISCHARGE INSTRUCTIONS: Patient was discharged home Follow up with surgeon in one week Follow up with primary care provide I have been assigned to dictate discharge summary for this account. I was not involved in the patient's management. Simi Vega NP ([facility]) Mar 01, 2018 09:25
--- NOTE | 2018-03-02 17:33 | Cardiology Report ---
APPROVED REPORT EKG Measurement Heart [id number] Normal sinus rhythm Normal ECG
== END 2018-02-28 16:45 | disposition home or self-care (01) | DRG 225 ==
LOC: EMR 02:39 → EDBEDREQ 05:12 → 4E 05:35 → EDBEDREQ 05:51
PROC: 0DTJ4ZZ Resection of Appendix, Percutaneous Endoscopic Approach (ICD-10-PCS; principal; 2018-02-27 10:30)
DX: K35.80 Unspecified acute appendicitis (principal); F41.9 Anxiety disorder, unspecified; R42 Dizziness and giddiness
CPT/HCPCS: 36415; 74176; 80048; 80053; 81003; 82962; 83690; 85025; 85610; 85730; 86850; 86900; 86901; 87081; 93005; 94003; 94150; J2250; J2405; J2710

== ENCOUNTER 2019-03-09 06:49 | Emergency (ER) | payer OTHER ==
[~2019-03-09] VITALS: Ht 160 cm; Wt 90.7 kg
[~2019-03-09 06:49] MED LIST changes: +MULTIVITAMINS1 EAC2 ORAL; +VITAMIN B122500 MCG PO; +VITAMIN E400 UNI6 PO; +XANAX0.25 MG ORAL
[2019-03-09 07:09] VITALS: BP 159/96
--- NOTE | 2019-03-09 07:15 | NUR ---
ED Nurse Note: Pt present at ER c/o anxious feeling since 0330 this morning. pt aao x 4 and [place] speaker. skin clean and intact.
--- NOTE | 2019-03-09 07:35 | Emergency Room Report ---
History of Present Illness General Chief Complaint: General Complaint Source: Patient Present Illness HPI This patient states that she has a history of vertigo. That she states that she was diagnosed with vertigo couple years ago. She states she hasn't had an episode in a while. However, she woke up with vertigo this morning. She did take 1-1/2 tablets of her meclizine and she has had significant improvement in her vertigo. Although, she states she still has some vertigo symptoms. She states that after she took the meclizine, she developed anxiety. She does have a diagnosis of anxiety and has Xanax to use as needed. She did not take her Xanax. She states that she presents here to the emergency department because she was concerned that her blood pressure was elevated. She would like to get her blood pressure checked. She denies chest pain or shortness of breath. She denies abdominal pain. She denies recent illness. She denies weakness. She denies tingling or numbness. She has no other complaints. Allergies: Coded Allergies: No Known Allergies (Unverified , 09/04/13) Patient History Past Medical History: see triage record, psych hx Past Surgical History: other - Ortho surgery Social History: Denies: smoking, alcohol use, drug use Last Menstrual Period: no period anymore Now: No Reviewed Nursing Documentation: PMH: Agreed; PSxH: Agreed Nursing Documentation-PMH Hx Cardiac Problems: No Hx Cancer: No Hx Gastrointestinal Problems: No History Of Psychiatric Problem: Yes - Anxiety Hx Neurological Problems: No Review of Systems All Other Systems: negative except mentioned in HPI Physical Exam Vital Signs Date Time Temp Pulse Resp B/P (MAP) Pulse Ox O2 Delivery O2 Flow Rate FiO2 03/09/19 06:57 98.6 76 20 159/96 97 Room Air Sp02 EP Interpretation: reviewed, normal General Appearance: no apparent distress, alert, GCS 15, non-toxic Head: normocephalic, atraumatic Eyes: bilateral eye normal inspection, bilateral eye PERRL ENT: hearing grossly normal, normal pharynx, no angioedema, normal voice Neck: full range of motion, supple/symm/no masses Respiratory: chest non-tender, lungs clear, normal breath sounds, no respiratory distress, no retraction, no accessory muscle use, speaking full sentences Cardiovascular #1: regular rate, rhythm, no edema Gastrointestinal: normal bowel sounds, non tender, soft, non-distended, no guarding, no rebound Rectal: deferred Musculoskeletal: back normal, gait/station normal, normal range of motion Neurologic: alert, oriented x3, responsive, motor strength/tone normal, sensory intact, speech normal Psychiatric: judgement/insight normal, memory normal, mood/affect normal, no suicidal/homicidal ideation Skin: normal color, no rash, warm/dry, well hydrated Medical Decision Making Diagnostic Impression: Primary Impression: Vertigo Additional Impression: Anxiety ER Course This patient has a physical exam at presentation consistent with benign positional vertigo. Other considerations include labyrinthitis, Mnire's disease, central vertigo. The patient's symptoms are short and episodic and have been positional. There are no central neurologic findings on physical exam which is very reassuring that this is not a posterior circulation stroke. The patient has a history of vertigo. The patient already has meclizine. I did place a scopolamine patch. She is significantly improved. Overall, the patient's evaluation was benign. At this time I do not feel that any further evaluation is indicated in the emergency department. The patient was given return precautions and followup instructions. Last Vital Signs Date Time Temp Pulse Resp B/P (MAP) Pulse Ox O2 Delivery O2 Flow Rate FiO2 03/09/19 07:09 98.6 76 20 159/96 97 Room Air Status: improved Disposition: HOME, SELF-CARE Condition: Improved Referrals: [facility],REFERRING (PCP) Bernie Santiago DO Mar 09, 2019 07:35
[2019-03-09] MEDS ORDERED: TransDerm Scop 1mg/72HR Patch TDERMAL ONE (07:45)
[2019-03-09 09:00] VITALS: BP 148/95
--- NOTE | 2019-03-09 09:01 | NUR ---
DISCHARGE NOTE: Patient is cleared to be discharged per ERMD, pt is aox4, on room air, with stable vital signs and BP went down. pt was given dc instructions, pt was able to verbalize understanding, pt id band removed. pt is able to ambulate with steady gait. pt took all belongings.
== END 2019-03-09 09:02 | disposition home or self-care (01) ==
LOC: EMR 07:30
DX: R42 Dizziness and giddiness (principal); F41.9 Anxiety disorder, unspecified
CPT/HCPCS: 99281

== ENCOUNTER 2019-03-20 20:37 | Emergency (ER) | payer OTHER ==
[~2019-03-20] VITALS: Ht 160 cm; Wt 90.7 kg
--- NOTE | 2019-03-20 21:11 | NUR ---
ED Nurse Note: PT WALKED IN C/C DOG BITE, PT STATES SHE WAS BITTEN BY NEIGHBOR'S DOG TODAY PRIOR TO COMING TO ED, NOTED TWO PUNCTURE WOUND ON LEFT FOREARM, SCANT BLEEDING NOTED, WILL CONT MONITOR. CMS INTACT.
[2019-03-20 21:12] VITALS: BP 115/87
[2019-03-20] MEDS ORDERED: Tylenol #3 tab (300mg/30mg) PO ONE (21:45)
[2019-03-20] MEDS ORDERED: Tetanus/Diptheria/Pertussis IM ONE (21:45)
[2019-03-20] MEDS ORDERED: Augmentin 875mg Tab ORAL ONE (21:45)
[2019-03-20] MEDS ORDERED: Bacitracin Oint UD TOPIC ONE (21:45)
[2019-03-20] MEDS ORDERED: AUGMENTIN 875-1 EAC1 ORAL (22:24)
[2019-03-20] MEDS ORDERED: ACETAMINOPHEN-1 EAC1 ORAL (22:24)
[2019-03-20] MEDS ORDERED: BACITRACIN15 GM TOPIC (22:24)
--- NOTE | 2019-03-20 22:28 | NUR ---
ED Nurse Note: PT cleared to be d/c per ERMD, pt wound cleaned and bacitracin applied with dressing, pt discharge and aftercare instruction provided w/ prescription, pt education done via discussion and handout, pt advised to follow up with pcp or return to ed if sx worsen or new sx develop, pt verbalized understanding and agrees with plan, vss, ambulatory w/ steady gait, accompanied by daughter.
[2019-03-20 22:29] VITALS: BP 115/87
--- NOTE | 2019-03-21 01:56 | Emergency Room Report ---
History of Present Illness General Chief Complaint: Animal Bite Source: Patient Present Illness HPI 58-year-old female presents ED for evaluation. Patient states she was bit by a dog tonight. Was her neighbors dog. States she was bit on the left arm. Tetanus unknown. Pain is throbbing, 8 out of 10, nonradiating. Denies any other injuries. States the dog has been vaccinated. No other aggravating relieving factors . Denies any other associated symptoms Allergies: Coded Allergies: No Known Allergies (Unverified , 09/04/13) Patient History Past Medical History: none Past Surgical History: none Pertinent Family History: none Social History: Denies: smoking, alcohol use, drug use Last Menstrual Period: 2017 Now: No Immunizations: UTD Reviewed Nursing Documentation: PMH: Agreed; PSxH: Agreed Nursing Documentation-PMH Past Medical History: No Stated History Hx Cardiac Problems: No Hx Cancer: No Hx Gastrointestinal Problems: No Hx Neurological Problems: No Review of Systems All Other Systems: negative except mentioned in HPI Physical Exam Vital Signs Date Time Temp Pulse Resp B/P (MAP) Pulse Ox O2 Delivery O2 Flow Rate FiO2 03/20/19 20:43 98.1 74 22 97/60 93 Room Air Sp02 EP Interpretation: reviewed, normal General Appearance: no apparent distress, alert, GCS 15, non-toxic Head: normocephalic, atraumatic Eyes: bilateral eye normal inspection, bilateral eye PERRL ENT: hearing grossly normal, normal pharynx, no angioedema, normal voice Neck: full range of motion, supple/symm/no masses Respiratory: chest non-tender, lungs clear, normal breath sounds, speaking full sentences Cardiovascular #1: regular rate, rhythm, no edema Cardiovascular #2: 2+ carotid (R), 2+ carotid (L), 2+ radial (R), 2+ radial (L) , 2+ dorsalis pedis (R), 2+ dorsalis pedis (L) Gastrointestinal: normal bowel sounds, non tender, soft, non-distended, no guarding, no rebound Rectal: deferred Genitourinary: normal inspection, no CVA tenderness Musculoskeletal: back normal, gait/station normal, normal range of motion Neurologic: alert, oriented x3, responsive, motor strength/tone normal, sensory intact, speech normal Psychiatric: judgement/insight normal, memory normal, mood/affect normal, no suicidal/homicidal ideation Reflexes: 3+ bicep (R), 3+ bicep (L), 3+ tricep (R), 3+ tricep (L), 3+ knee (R) , 3+ knee (L) Skin: normal color, warm/dry, well hydrated, other - puncture wounds to L forearm. no active bleeding. no crepitus/bruising. Lymphatic: no adenopathy Medical Decision Making Diagnostic Impression: Primary Impression: Dog bite Qualified Codes: W54.0XXA - Bitten by dog, initial encounter ER Course Hospital Course 58-year-old F presents ED c/o L forearm pain s/p dog bite Differential diagnoses include: abscess, cellulitis, ankle fracture, dislocation Clinical course Patient placed on stretcher. After initial history and physical, wound is irrigated. I ordered pain medications, antibiotics, tetanus and Xray of L forearm Xray - no evidence of fracture/dislocation. Discussed findings with patient. Wound irrigated. bacitracin, dressing applied. Given tetanus and Augmentin here. We'll discharged to home with antibiotics. Safe for discharge with close outpatient follow-up. We'll provide PMD referrals Diagnosis -dog bite Stable and discharged to home with prescription Rx bacitracin, augmentin. Followup with PMD. Return to ED if symptoms recur or worsen Other X-Ray Diagnostic Results Other X-Ray Diagnostic Results : X-Ray ordered: L forearm # of Views/Limited Vs Complete: 3 View Indication: Pain EP Interpretation: Yes Interpretation: no dislocation, no soft tissue swelling, no fractures Impression: No acute disease Electronically Signed by: Electronically signed by Clyde Hernandez MD Last Vital Signs Date Time Temp Pulse Resp B/P (MAP) Pulse Ox O2 Delivery O2 Flow Rate FiO2 03/20/19 22:29 98.1 74 18 115/87 100 Room Air Status: improved Disposition: HOME, SELF-CARE Condition: Stable Scripts Bacitracin (Bacitracin) 28.4 Gm Oint...g. 1 APPLIC TOPIC THREE TIMES A DAY, #28.4 GM Prov: Clyde Hernandez MD 03/20/19 Amoxicillin/Potassium Clav 875-125* (AUGMENTIN 875-125 TABLET*) 1 Each Tablet 1 TAB ORAL TWICE A DAY, #14 TAB Prov: Clyde Hernandez MD 03/20/19 Acetaminophen With Codeine (T#3) (TYLENOL #3 TAB*) Y Tab 1 TAB ORAL Q8H PRN for For Pain for 3 Days, TAB Prov: Clyde Hernandez MD 03/20/19 Referrals: [facility] Patient Instructions: Animal Bite, [id number] Clyde Hernandez MD Mar 21, 2019 01:56
--- NOTE | 2019-03-21 10:55 | Diagnostic Imaging Report ---
Indication: Pain Forearm pain Findings: 2 views of the left forearm were obtained. No acute fractures, malalignment, erosions or periostitis are identified. Bone mineralization is within normal limits. Soft tissues are unremarkable. Impression: Negative for acute injury.
== END 2019-03-20 22:30 | disposition home or self-care (01) ==
LOC: EMR 21:10
DX: S41.152A Open bite of left upper arm, initial encounter (principal); Z23 Encounter for immunization; W54.0XXA Bitten by dog, initial encounter; Y92.9 Unspecified place or not applicable
CPT/HCPCS: 90471; 90715; 99283